=== PATIENT | female | born 2000 | race Hispanic/Latino ===

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

== ENCOUNTER → 2020-05-16 | Outpatient (CLI) | payer SELFPAY | END | disposition home or self-care (01) | LOC: RAH 07:14 | PROVIDERS: ATTEND General Practice | DX: E04.1 Nontoxic single thyroid nodule (principal) | CPT/HCPCS: 76536 ==

== ENCOUNTER 2022-06-18 12:26 | Emergency (ER) | payer BC, SELFPAY ==
[~2022-06-18] VITALS: Ht 152.4 cm; Wt 81.6 kg
[2022-06-18 12:58] LABS: BASOPHILS % (AUTO) 0.3 % (0.0-5.0); EOSINOPHILS % (AUTO) 0.8 % (0.0-8.0); LYMPHOCYTES % (AUTO) 14.1 % (21.0-51.0); MEAN CORPUSCULAR HEMOGLOBIN 26.1 pg (27.0-33.0); MEAN CORPUSCULAR HGB CONC 31.5 g/dL (32.0-36.0); MONOCYTES % (AUTO) 4.9 % (3.0-13.0); NEUTROPHILS % (AUTO) 79.4 % (40.0-77.0); PLATELET COUNT (AUTO) 341 K/uL (130-400); RED BLOOD CELL COUNT(AUTO) 4.94 MIL/uL (4.00-5.50); RED CELL DISTRIBUTION WIDTH 15.4 % (11.0-15.5); WHITE BLOOD COUNT (AUTO) 14.4 K/uL (4.8-10.8)
[2022-06-18 13:07] LABS: APPEARANCE,URINE CLOUDY (CLEAR); BILIRUBIN,URINE NEGATIVE (NEGATIVE); COLOR,URINE COLORLESS (YELLOW); GLUCOSE, URINE (UA) NEGATIVE (NEGATIVE); KETONES,URINE NEGATIVE (NEGATIVE); LEUKOCYTE ESTERASE ,URINE NEGATIVE Leu/uL (NEGATIVE); NITRATE,URINE NEGATIVE (NEGATIVE); OCCULT BLOOD,URINE LARGE (NEGATIVE); PROTEIN,URINE NEGATIVE (NEGATIVE); UROBILINOGEN,URINE 0.2 mg/dL (0.2-1.0)
[2022-06-18 13:08] LABS: BACTERIA,URINE RARE /HPF (None Seen); SQUAMOUS EPITHELIAL CELL,UR RARE /HPF (0-2); WBC,URINE 0-1 /HPF (0-1)
[2022-06-18 13:09] LABS: CREATININE 0.8 mg/dL (0.5-1.5); POTASSIUM 3.9 mmol/L (3.5-5.1)
[2022-06-18 13:20] LABS: ALBUMIN 3.5 g/dL (3.5-5.0); TOTAL PROTEIN, SERUM 7.6 g/dL (6.0-8.3)
[2022-06-18 14:01] VITALS: BP 138/72
== END 2022-06-18 14:03 | disposition home or self-care (01) ==
LOC: EDH 12:26
DX: N93.8 Other specified abnormal uterine and vaginal bleeding (principal); E28.2 Polycystic ovarian syndrome; E66.01 Morbid (severe) obesity due to excess calories; Z68.31 Body mass index [BMI] 31.0-31.9, adult
CPT/HCPCS: 36415; 80053; 81001; 84702; 85025

== ENCOUNTER 2022-12-16 02:35 | Observation (INO) | payer BC, MEDICAID ==
[~2022-12-16] VITALS: Ht 152.4 cm; Wt 105.2 kg
[2022-12-16 02:36] VITALS: BP 122/63
[2022-12-16 03:16] LABS: APPEARANCE,URINE CLOUDY (CLEAR); BILIRUBIN,URINE NEGATIVE (NEGATIVE); COLOR,URINE YELLOW (YELLOW); GLUCOSE, URINE (UA) NEGATIVE (NEGATIVE); KETONES,URINE NEGATIVE (NEGATIVE); LEUKOCYTE ESTERASE ,URINE 500 Leu/uL (NEGATIVE); NITRATE,URINE NEGATIVE (NEGATIVE); PROTEIN,URINE 20 mg/dL (NEGATIVE)
[2022-12-16 03:19] LABS: AMPHET/METH SCREEN,URINE NEGATIVE (NEGATIVE); BACTERIA,URINE RARE /HPF (None Seen); BARBITURATE SCREEN, URINE NEGATIVE (NEGATIVE); BENZODIAZEPINES SCREEN,URINE NEGATIVE (NEGATIVE); CANNABINOID SCREEN,URINE NEGATIVE (NEGATIVE); COCAINE SCREEN,URINE NEGATIVE (NEGATIVE); MUCUS,URINE RARE LPF (None Seen); OPIATE SCREEN,URINE NEGATIVE (NEGATIVE); PHENCYCLIDINE SCREEN,URINE NEGATIVE (NEGATIVE); SQUAMOUS EPITHELIAL CELL,UR MANY /HPF (0-2)
[2022-12-16] MEDS: LACTATED RINGERS 1000ML 1,000 ML IV PRN ×2 (04:19→04:26)
[2022-12-16] MEDS ORDERED: ONDANSETRON 4MG INJ IVP PRN (04:30)
[2022-12-16 05:12] LABS: ALANINE AMINOTRANSFERASE 5 U/L (12-78); ALBUMIN 2.4 g/dL (3.5-5.0); ASPARTATE AMINOTRANSFERASE 11 U/L (10-37); CARBON DIOXIDE 23 mmol/L (21-32); CHLORIDE 104 mmol/L (101-111); CREATININE 0.6 mg/dL (0.5-1.5); GLOMERULAR FILTR. RATE CALC 130 mL/min (>90); GLUCOSE,RANDOM 121 mg/dL (70-105); HEMATOCRIT 36.1 % (36-48); MEAN CORPUSCULAR HEMOGLOBIN 29.2 pg (27.0-33.0); MEAN CORPUSCULAR HGB CONC 31.6 g/dL (32.0-36.0); MEAN CORPUSCULAR VOLUME 92.3 fL (79-99); PLATELET COUNT (AUTO) 246 K/uL (130-400); POTASSIUM 3.6 mmol/L (3.5-5.1); RED BLOOD CELL COUNT(AUTO) 3.91 MIL/uL (4.00-5.50); RED CELL DISTRIBUTION WIDTH 14.7 % (11.0-15.5); SODIUM SERUM 136 mmol/L (136-145); TOTAL PROTEIN, SERUM 6.3 g/dL (6.0-8.3); UREA NITROGEN, BLOOD 9 mg/dL (7-18); WHITE BLOOD COUNT (AUTO) 16.9 K/uL (4.8-10.8)
[2022-12-16 05:16] LABS: LIPASE < 50 U/L (114-286)
[2022-12-16 05:49] LABS: BAND NEUTROPHILS % (MANUAL) 1 % (0-2); EOSINOPHILS % (MANUAL) 1 % (1-6); LYMPHOCYTES % (MANUAL) 4 % (22-44); MAN.DIFF COMMENT-IMPRESSION MANUAL DIFFERENTIAL; MONOCYTES % (MANUAL) 1 % (2-9); SEGMENTED NEUTROPHILS % 93 % (40-70)
[2022-12-16 05:50] LABS: PLATELET MORPHOLOGY COMMENT ADEQUATE
== END 2022-12-16 06:15 | disposition home or self-care (01) ==
LOC: EDH 02:35 → LDH 02:36
PROVIDERS: ADMIT Internal Medicine; ATTEND Internal Medicine
DX: O26.892 Other specified pregnancy related conditions, second trimester (principal); R10.10 Upper abdominal pain, unspecified; R10.30 Lower abdominal pain, unspecified; R19.7 Diarrhea, unspecified; Z3A.25 25 weeks gestation of pregnancy; Z87.891 Personal history of nicotine dependence
CPT/HCPCS: 96374; 96361; 80053; 80305; 83690; 85025; 87088; 81001; 36415; G0378 ×3; G0379; J2405; 96360

== ENCOUNTER 2024-08-17 21:53 | Emergency (ER) | payer SELFPAY ==
[~2024-08-17] VITALS: Ht 152.4 cm; Wt 104.3 kg
--- NOTE | 2024-08-17 21:59 | NUR ---
UA CUP PROVIDED
--- NOTE | 2024-08-17 22:04 | EKG ---
[facility] Test Date: 2024-08-17 Test Time: 22:01:13 Pat Name: LEIDY ZHU Department: [facility] Room: Gender: F Cane Packer: [phone] [phone] 2000 Requested By: RE NEGRON Order Number: [id number] Reading MD: Penelope Sheppard Measurements Intervals Blessing Rate: 97 P: 12 CT: 128 QRS: 13 QRSD: 80 T: 13 QT: 337 QTc: 429 Interpretive Statements Sinus rhythm Low voltage, precordial leads No previous ECG available for comparison Electronically Signed On 08-20-2024 15:58:11 BOARD CERTIFIED ARTS THERAPIST by Penelope Sheppard Please click the below link to view image of tracing.
--- NOTE | 2024-08-17 22:37 | ERN ---
ED Note History of Present Illness Stated Complaint: CHEST PAIN Chief Complaint: Chest Pain Time Seen by MD: 22:00 Time Seen by Midlevel: 22:00 Dictation: Patient is a 24-year-old female with a history of who presents to the emergency department with complaints of left side chest pain that is intermediate onset a 830 p.m. patient reports she feels a cramping sensation that lasts about 3 minutes and then goes away. Associated with some shortness of breath. Patient denies any trauma, cough or fevers. Reports she was checking her blood pressure and it was 150/106 and became concerned. Patient does report being under lot of stress with work and school. Allergies: Coded Allergies: No Known Allergies (Unverified Allergy, Unknown, 06/18/22) Past Medical History Past Medical History: Other Additional Past Medical Hx: POLYCISTIC OVARIAN SYNDROME, morbidly obese, PRE ECLAMPSIA Surgical History: Family History: Negative Social History: Lives with family LMP: Mar 25, 2023 : 1 Para: 1 Aborts: 0 RN Note Reviewed/Agreed w/PFSH: Yes Review of System Dictation Constitutional: Negative for fever,chills, and weight loss Eyes: Negative for injury, pain,redness, and discharge ENT: Negative for injury,pain or swelling Cardiovascular: Negative for palpitations, and edema positive for chest pain Respiratory: Negative for cough, and wheezing, positive for shortness of breath Abdomen/GI: Negative for abdominal pain, nausea, vomiting, diarrhea, and constipation Back: Negative for injury and pain : Negative for injury, bleeding and discharge MS/Extremity: Negative for injury and deformity Skin: Negative for rash, and discoloration Neuro: Negative for weakness, numbness, tingling, and seizure positive for headache Psych: Negative for suicide ideation, homicidal ideation, and hallucinations Initial Vital Sign VS Vital Signs Date Time Temp Pulse Resp B/P (MAP) Pulse Ox O2 Delivery O2 Flow Rate FiO2 08/17/24 21:54 98.8 89 20 158/100 100 Room Air Physical Exam Dictation Vital Signs reviewed General Appearance: Alert, oriented x 3, no acute distress, well developed, nourished. Head and Face: non-traumatic. Eyes: PERRL, pink conjunctivas, eyelid no trauma, anterior chamber with arcus senilis. Ears: Pinnas intact and no signs of trauma or erythema ear canals clear and no discharge TM no erythema Nose: No discharge, no bleeding. Oropharynx: Mouth normal, tongue pink. pharynx clear,no erythema, tonsils no exudates, no abscesses noted, mucous membrane moist Neck: Supple, non-tender, no thyromegaly, no masses, no JVD, no bruits Breast:Deferred Chest:No tenderness, no crepitus, no paradoxical movement, no retractions Lungs:Clear, well-ventilated, symmetric, no rales, no wheezing, no rhonchi, no stridor, good breath sounds bilaterally Heart: Regular rate, regular rhythm, no murmur, no gallops Vascular: no peripheral edema, Abdomen: Soft, positive bowel sounds, nondistended, no guarding, nontender, no rebound, no masses no hepatomegaly, no splenomegaly, no Middleton's sign, no hernias. Rectal: Deferred Genital: Deferred Neurological: Normal speech, motor function intact, sensory function intact Musculoskeletal: Neck nontender, full range of motion, back nontender, full range of motion, Extremities: nontender, full range of motion Skin: Color pink, dry, no turgor, no rash, no lacerations, no abrasions, no contusions. Lymphatic: Deferred Results (Laboratory/Radiology) Laboratory/Radiology Laboratory Tests Test 08/17/24 22:08 08/17/24 22:18 Urine Color LIGHT-YELLOW (YELLOW) Urine Appearance CLEAR (CLEAR) Urine pH 5.5 (5.0-8.0) Urine Specific [place] 1.021 (1.001-1.031) Urine Protein NEGATIVE mg/dL (NEGATIVE) Urine Glucose (UA) NEGATIVE mg/dL (NEGATIVE) Urine Ketones NEGATIVE mg/dL (NEGATIVE) Urine Occult Blood SMALL (NEGATIVE) H Urine Nitrate NEGATIVE (NEGATIVE) Urine Bilirubin NEGATIVE mg/dL (NEGATIVE) Urine Urobilinogen 0.2 mg/dL (0.2-1.0) Urine Leukocyte Esterase NEGATIVE Arnoldo/uL Urine RBC 2-5 /HPF (0-1) H Urine WBC 2-5 /HPF (0-1) H Urine Squamous Epithelial Cells MOD /HPF (0-2) Urine Bacteria RARE /HPF (None Seen) Urine HCG, Qualitative NEGATIVE (NEGATIVE) Urine Opiates Screen NEGATIVE (NEGATIVE) Urine Barbiturates Screen NEGATIVE (NEGATIVE) Urine Phencyclidine Screen NEGATIVE (NEGATIVE) Urine Amphetamines Screen NEGATIVE (NEGATIVE) Urine Benzodiazepines Screen NEGATIVE (NEGATIVE) Urine Cocaine Screen NEGATIVE (NEGATIVE) Urine Marijuana (THC) Screen POSITIVE (NEGATIVE) H White Blood Count 14.3 K/uL (4.8-10.8) H Red Blood Count 4.77 MIL/uL (4.00-5.50) Hemoglobin 13.6 g/dL (12.0-16.0) Hematocrit 41.9 % (36-48) Mean Corpuscular Volume 87.8 fL (79-99) Mean Corpuscular Hemoglobin 28.5 pg (27.0-33.0) Mean Corpuscular Hemoglobin Concent 32.5 g/dL (32.0-36.0) Red Cell Distribution Width 14.0 % (11.0-15.5) Platelet Count 341 K/uL (130-400) Mean Platelet Volume 9.3 fL (7.5-10.5) Immature Granulocyte % (Auto) 0.6 % (0-1) Neutrophils (%) (Auto) 62.2 % (40.0-77.0) Lymphocytes (%) (Auto) 28.8 % (21.0-51.0) Monocytes (%) (Auto) 4.6 % (3.0-13.0) Eosinophils (%) (Auto) 3.4 % (0.0-8.0) Basophils (%) (Auto) 0.4 % (0.0-5.0) Neutrophils # (Auto) 8.9 K/uL (1.8-7.7) H Lymphocytes # (Auto) 4.1 K/uL (1.0-4.8) Monocytes # (Auto) 0.7 K/uL (0.1-1.0) Eosinophils # (Auto) 0.48 K/uL (0.00-0.70) Basophils # (Auto) 0.06 K/uL (0.00-0.20) Absolute Immature Granulocyte (auto 0.08 K/uL (0-1) Nucleated Red Blood Cells 0.0 % (0.0-0.19) Sodium Level 138 mmol/L (136-145) Potassium Level 3.9 mmol/L (3.5-5.1) Chloride Level 104 mmol/L (101-111) Carbon Dioxide Level 27 mmol/L (21-32) Blood Urea Nitrogen 9 mg/dL (7-18) Creatinine 0.8 mg/dL (0.5-1.0) Glomerular Filtration Rate Calc 105 mL/min (>90) Random Glucose 117 mg/dL (70-105) H Total Calcium 8.9 mg/dL (8.5-10.1) Total Creatine Kinase 145 U/L (21-232) Troponin I High Sensitivity < 4 ng/L (4-50) L B-Type Natriuretic Peptide 9 pg/mL (0-100) Labs Reviewed?: Yes EKG: (+) rhythm (Sinus rhythm) EKG Comment: Date:08/17/2024 Time: 2200 Ventricular rate: 97 DE interval: 128 QRS duration:80 QT/QTc:337 EKG interpretation: Sinus rhythm Reviewed by ED Attending no STEMI ED Course ED Course Orders Procedure Category Date Status Time Vital Signs Per CPOE 08/17/24 Transmitted Routine 21:57 B-Type Natriuretic LAB 08/17/24 Complete Peptide 21:57 Chest 1vw RAD 08/17/24 Taken 21:57 12 Lead Ekg Tracing- EKG 08/17/24 Complete Technical 21:57 Oxygen By Nc/Pulse Ox CPOE 08/17/24 Transmitted 21:57 Maintain Iv CPOE 08/17/24 Transmitted 21:57 Iv Insertion CPOE 08/17/24 Transmitted 21:57 Cardiac Monitoring CPOE 08/17/24 Transmitted 21:57 Pulse Oximetry With CPOE 08/17/24 Transmitted Vs And Prn 21:57 Cbc With Differential LAB 08/17/24 Complete 21:57 Activity: Br W/Brp CPOE 08/17/24 Transmitted With Assist 21:57 Creatine Kinase, Total LAB 08/17/24 Complete 21:57 Troponin I High LAB 08/17/24 Complete Sensitivity 21:57 Urinalysis Profile LAB 08/17/24 Complete 21:57 Troponin Poc Order LAB 08/17/24 Complete Only 21:57 Bedside Troponin-I LAB.ER 08/17/24 In Process (Poc) 21:57 Basic Metabolic Panel LAB 08/17/24 Complete 21:57 ,Urine Test LAB 08/17/24 Complete 21:57 Acetaminophen 500mg PHA 08/17/24 Complete Tab (Tylenol 500mg T 22:30 Drug Screen Urine LAB 08/17/24 Complete 22:33 Current Medications Medications (Trade) Dose Ordered Sig/Devang Route PRN Reason Start Time Stop Time Status Last Admin Dose Admin Acetaminophen (TYLenol 500MG TAB) 1,000 mg ONCE ONCE PO 08/17/24 22:30 08/17/24 22:31 DC Vital Signs Date Time Temp Pulse Resp B/P (MAP) Pulse Ox O2 Delivery O2 Flow Rate FiO2 08/17/24 21:54 98.8 89 20 158/100 100 Room Air HEART Score Response (Comments) Value History: Low suspicion (0) 0 EKG: Normal 0 Age: < 45yrs (0) 0 Risk Factors: No known risk factors (0) 0 Initial Troponin: Normal limit (0) 0 Total 0 Medical Decision Making MDM Patient is a 24-year-old female with a history of who presents to the emergency department with complaints of left side chest pain that is intermediate onset a 830 p.m. patient reports she feels a cramping sensation that lasts about 3 minutes and then goes away. Associated with some shortness of breath. Patient denies any trauma, cough or fevers. Reports she was checking her blood pressure and it was 150/106 and became concerned. Patient does report being under lot of stress with work and school. CBC showed mild leukocytosis probably related to marijuana abuse, no anemia chemistry showed no electrolyte imbalance, negative troponin, negative BNP serology positive for marijuana. EKG sinus rhythm, unremarkable. Patient with no more chest pain. Low risk for cardiac etiology. Neurologically intact. Patient no acute distress. Nontoxic appearance Agrees to be discharged and follow up with PCP. Differential diagnosis: ACS, pneumothorax, anxiety, electrolyte imbalance Need for hospitalization: Patient does not meet criteria for hospitalization. There are no social concerns with this patient. DX & DISP Disposition: Discharge Departure Impression: Primary Impression: Atypical chest pain Additional Impressions: Marijuana abuse, Leukocytosis Condition: Stable Additional Instructions: Please continue to follow up with your PCP and continue to monitor your blood pressure at home. If symptoms worsen please return to ER. FOLLOW-UP WITH PRIMARY CARE PROVIDER IN 1 TO 2 DAYS. TAKE MEDICATIONS DIRECTED HERE IN THE EMERGENCY ROOM. OKAY TO CONTINUE HOME MEDICATIONS UNLESS OTHERWISE DISCUSSED DURING YOUR VISIT IN THE EMERGENCY ROOM TODAY. RETURN TO YOUR NEAREST EMERGENCY ROOM IF SYMPTOMS WORSEN OR IF THERE IS NO IMPROVEMENT. CALL 911 IF YOU NEED IMMEDIATE ASSISTANCE. TAKE TYLENOL OR MOTRIN [id number] NEEDED AND IF NO CONTRAINDICATIONS ARE PRESENT. INCREASE ORAL HYDRATION. A WOUND CULTURE OR URINE CULTURE WAS ORDERED HERE IN THE EMERGENCY ROOM DEPARTMENT PLEASE FOLLOW-UP WITH PRIMARY CARE PROVIDER AND ADVISE THEM TO GET REPEAT PORTS FROM OUR FACILITY. IF YOU HAD ANY THO WRAP/SPLINTS THAT WERE APPLIED HERE, PLEASE DO NOT REMOVE THEM UNTIL YOU SEE YOUR PRIMARY CARE OR SPECIALTY. Referrals: SELF,REFERRAL (PCP) Time of Disposition: 23:57 I have reviewed the case, and I agree with, Diagnosis and Plan SHIVANI HERR [employer] MANAGER Aug 17, 2024 22:37
[2024-08-17 22:40] LABS: BASOPHILS # (AUTO) 0.06 K/uL (0.00-0.20); BASOPHILS % (AUTO) 0.4 % (0.0-5.0); CREATININE 0.8 mg/dL (0.5-1.0); EOSINOPHILS # (AUTO) 0.48 K/uL (0.00-0.70); EOSINOPHILS % (AUTO) 3.4 % (0.0-8.0); HEMATOCRIT 41.9 % (36-48); IMMATURE GRANULOCYTE ABSOLUTE 0.08 K/uL (0-1); LYMPHOCYTES # (AUTO) 4.1 K/uL (1.0-4.8); LYMPHOCYTES % (AUTO) 28.8 % (21.0-51.0); MEAN CORPUSCULAR HEMOGLOBIN 28.5 pg (27.0-33.0); MEAN CORPUSCULAR HGB CONC 32.5 g/dL (32.0-36.0); MEAN CORPUSCULAR VOLUME 87.8 fL (79-99); MONOCYTES # (AUTO) 0.7 K/uL (0.1-1.0); MONOCYTES % (AUTO) 4.6 % (3.0-13.0); NEUTROPHILS # (AUTO) 8.9 K/uL (1.8-7.7); NEUTROPHILS % (AUTO) 62.2 % (40.0-77.0); PLATELET COUNT (AUTO) 341 K/uL (130-400); POTASSIUM 3.9 mmol/L (3.5-5.1); RED BLOOD CELL COUNT(AUTO) 4.77 MIL/uL (4.00-5.50); WHITE BLOOD COUNT (AUTO) 14.3 K/uL (4.8-10.8)
[2024-08-17 22:40] LABS: ADD UA MICROSCOPIC YES; APPEARANCE,URINE CLEAR (CLEAR); BILIRUBIN,URINE NEGATIVE (NEGATIVE); COLOR,URINE LIGHT-YELLOW (YELLOW); GLUCOSE, URINE (UA) NEGATIVE (NEGATIVE); KETONES,URINE NEGATIVE (NEGATIVE); LEUKOCYTE ESTERASE ,URINE NEGATIVE Leu/uL (NEGATIVE); NITRATE,URINE NEGATIVE (NEGATIVE); OCCULT BLOOD,URINE SMALL (NEGATIVE); PH,URINE 5.5 (5.0-8.0); PROTEIN,URINE NEGATIVE (NEGATIVE); UROBILINOGEN,URINE 0.2 mg/dL (0.2-1.0)
[2024-08-17 22:41] LABS: BACTERIA,URINE RARE /HPF (None Seen); SQUAMOUS EPITHELIAL CELL,UR MOD /HPF (0-2)
[2024-08-17 22:47] LABS: HCG,QUALITATIVE URINE NEGATIVE (NEGATIVE)
[2024-08-17 23:03] LABS: B-TYPE NATRIURETIC PEPTIDE 9 pg/mL (0-100)
[2024-08-17 23:12] LABS: AMPHET/METH SCREEN,URINE NEGATIVE (NEGATIVE); BARBITURATE SCREEN, URINE NEGATIVE (NEGATIVE); BENZODIAZEPINES SCREEN,URINE NEGATIVE (NEGATIVE); CANNABINOID SCREEN,URINE POSITIVE (NEGATIVE); COCAINE SCREEN,URINE NEGATIVE (NEGATIVE); OPIATE SCREEN,URINE NEGATIVE (NEGATIVE); PHENCYCLIDINE SCREEN,URINE NEGATIVE (NEGATIVE)
--- NOTE | 2024-08-17 23:32 | NUR ---
TRIAGE EDIT TO REFLECT UDS
[2024-08-18] MEDS: acetaMINOPHEN 500 MG TABLET PO ONE (00:09)
[2024-08-18 00:12] VITALS: BP 147/89; PULSE 85; RESP 16; TEMP 98; O2SAT 99
--- NOTE | 2024-08-18 00:41 | NUR ---
PT CONTINUES WITH NO PAIN, DENIES NEGATIVE REACTION TO TYLENOL
--- NOTE | 2024-08-18 08:14 | HMCIMG ---
PORTABLE CHEST RADIOGRAPH INDICATION: CHEST PAIN COMPARISON: 05/26/2018 FINDINGS: Heart size is normal. The pulmonary vascularity and tiffanie appear normal. No abnormal pulmonary parenchymal opacity or consolidation identified. No significant pleural effusion noted. No pneumothorax detected. IMPRESSION: No radiographic evidence for any acute cardiopulmonary process.
== END 2024-08-18 00:42 | disposition home or self-care (01) ==
LOC: EDH 21:53
DX: R07.89 Other chest pain (principal); F12.10 Cannabis abuse, uncomplicated; D72.829 Elevated white blood cell count, unspecified; E66.01 Morbid (severe) obesity due to excess calories; Z87.59 Personal history of other complications of pregnancy, childbirth and the puerperium
CPT/HCPCS: 36415; 71045; 80048; 80305; 81001; 81025; 82550; 83880; 84484; 85025; 93005; 99285